=== PATIENT | male | born 1960 | race Caucasian/White ===

== ENCOUNTER → 2018-03-14 07:29 | Outpatient (CLI) | payer MEDICAID, SELFPAY ==
[2018-03-14 10:37] LABS: AST(SGOT) 14 U/L (15-37); Alanine Aminotransfer ALT/SGPT 25 U/L (16-61); Albumin, Serum 3.4 g/dL (3.2-5.0); Alkaline Phosphatase 48 U/L (45-117); Anion Gap 6 (5-15); BUN 22 mg/dL (7-18); BUN/Creat Ratio 26.4 RATIO (10-20); Calcium,Total 8.2 mg/dL (8.5-10.1); Chloride 106 mmol/L (98-107); Cholesterol 168 mg/dL (200); Creatinine, Serum 0.83 mg/dL (0.70-1.30); EST Glomerular Filtration Rate 101 mL/min (>60); Est Glom Filt Rate - Afr Amer 122 mL/min (>60); Globulin 3.5 g/dL (2.2-4.2); Glucose 97 mg/dL (74-106); High Density Lipoprotein 46 mg/dL; Potassium 4.1 mmol/L (3.5-5.1); Protein, Total 6.9 g/dL (6.4-8.2); Sodium Level 139 mmol/L (136-145); Triglycerides 52 mg/dL; Very Low Density Lipoprotein 10 mg/dL (5-40)
== END ==
PROVIDERS: Family Provider Family Medicine; PCP Family Medicine; Referring Provider Family Medicine; Visit Provider Family Medicine
DX: I10 Essential (primary) hypertension (principal)
CPT/HCPCS: 36415; 80053; 80061

== ENCOUNTER → 2018-06-28 17:46 | Outpatient (CLI) | payer MEDICAID, SELFPAY ==
[2018-06-28 19:53] LABS: Chlamydia Trachomatis by PCR Negative (Negative); Probe Check PASS
[2018-06-29 10:02] LABS: Neisserai gonorrhoeae by PCR Negative (Negative); Sample Adequacy Control PASS; Specimen Processing Control PASS
== END ==
PROVIDERS: Family Provider Family Medicine; PCP Family Medicine; Referring Provider Family Medicine; Visit Provider Family Medicine
DX: N45.1 Epididymitis (principal)
CPT/HCPCS: 87086; 87491; 87591

== ENCOUNTER → 2019-06-01 09:49 | Outpatient (CLI) | payer MEDICAID, SELFPAY ==
[2019-06-01 10:36] LABS: Hematocrit 46.6 % (40-54); Hemoglobin 15.6 g/dL (13.0-16.5); Mean Corp Hgb Conc 33.5 g/dL (32-36); Mean Corpuscular Hgb 28.9 pg (27.0-32.0); Mean Corpuscular Volume 86.3 fL (80-94); Mean Platelet Vol. 8.4 fl (6.2-12.0); Platelet Count 236 K/mm3 (150-450); RBC Distribution Width CV 12.8 % (11.6-14.6); RBC Distribution Width SD 39.9 fl (35.1-43.9); White Blood Count 7.8 K/mm3 (4.4-11.0)
[2019-06-01 11:08] LABS: ALB/GLOB Ratio 1.1 RATIO (0.9-2.4); AST(SGOT) 17 U/L (15-37); Alanine Aminotransfer ALT/SGPT 30 U/L (16-61); Albumin, Serum 3.7 g/dL (3.2-5.0); Alkaline Phosphatase 53 U/L (45-117); Anion Gap 5 (5-15); BUN 20 mg/dL (7-18); BUN/Creat Ratio 23.6 RATIO (10-20); Calcium,Total 8.5 mg/dL (8.5-10.1); Chloride 107 mmol/L (98-107); Creatinine, Serum 0.85 mg/dL (0.70-1.30); EST Glomerular Filtration Rate 98 mL/min (>60); Est Glom Filt Rate - Afr Amer 119 mL/min (>60); Globulin 3.5 g/dL (2.2-4.2); Glucose 103 mg/dL (74-106); PSA,Total - Annual Screen 2.34 ng/mL (0.00-4.00); Potassium 4.2 mmol/L (3.5-5.1); Protein, Total 7.2 g/dL (6.4-8.2); Sodium Level 141 mmol/L (136-145); Thyroid Stim Hormone (TSH) 1.26 uIU/mL (0.358-3.74)
[2019-06-03 09:04] LABS: Vitamin D,25 Hydroxy 17.8 ng/mL (29.95-100.01)
== END ==
PROVIDERS: Family Provider Family Medicine; PCP Family Medicine; Referring Provider Family Medicine; Visit Provider Family Medicine
DX: I10 Essential (primary) hypertension (principal); R53.83 Other fatigue; Z12.5 Encounter for screening for malignant neoplasm of prostate
CPT/HCPCS: 36415; 80053; 82306; 84153; 84403; 84443; 85027; G0103

== ENCOUNTER → 2020-07-28 15:14 | Outpatient (CLI) | payer MEDICAID, SELFPAY ==
[2020-07-28 18:00] LABS: Hemoglobin A1c 5.6 % (3.8-5.6)
[2020-07-28 18:19] LABS: ALB/GLOB Ratio 1.2 RATIO (0.9-2.4); AST(SGOT) 18 U/L (15-37); Alanine Aminotransfer ALT/SGPT 34 U/L (16-61); Alkaline Phosphatase 54 U/L (45-117); Anion Gap 6 (5-15); BUN 14 mg/dL (7-18); BUN/Creat Ratio 17.9 RATIO (10-20); Calcium,Total 8.7 mg/dL (8.5-10.1); Chloride 103 mmol/L (98-107); Cholesterol 179 mg/dL (200); Creatinine, Serum 0.78 mg/dL (0.70-1.30); EST Glomerular Filtration Rate 107 mL/min (>60); Est Glom Filt Rate - Afr Amer 130 mL/min (>60); Globulin 3.4 g/dL (2.2-4.2); Glucose 87 mg/dL (74-106); High Density Lipoprotein 55 mg/dL; PSA,Total - Annual Screen 2.76 ng/mL (0.00-4.00); Potassium 4.1 mmol/L (3.5-5.1); Protein, Total 7.4 g/dL (6.4-8.2); Sodium Level 137 mmol/L (136-145); Thyroid Stim Hormone (TSH) 1.15 uIU/mL (0.358-3.74); Triglycerides 71 mg/dL; Very Low Density Lipoprotein 14 mg/dL (5-40)
== END ==
PROVIDERS: PCP Family Medicine; Referring Provider Family Medicine; Visit Provider Family Medicine
DX: I10 Essential (primary) hypertension (principal); E66.9 Obesity, unspecified; Z12.5 Encounter for screening for malignant neoplasm of prostate
CPT/HCPCS: 36415; 80053; 80061; 83036; 84153; 84443; G0103

== ENCOUNTER → 2020-09-07 13:53 | Outpatient (CLI) | payer BC, MEDICAID, SELFPAY | PROVIDERS: PCP Family Medicine; Visit Provider Family Medicine | DX: Z20.822 Contact with and (suspected) exposure to COVID-19 (principal) | CPT/HCPCS: 87635; U0002 ==

== ENCOUNTER → 2021-05-07 09:05 | Outpatient (CLI) | payer BC, MEDICAID, SELFPAY | LOC: MFPLAB 09:09 → LABSPEC 09:10 | PROVIDERS: PCP Family Medicine; Referring Provider Family Medicine; Visit Provider Family Medicine | DX: Z20.822 Contact with and (suspected) exposure to COVID-19 (principal) | CPT/HCPCS: 87635; U0005; U0003 ==

== ENCOUNTER → 2021-06-01 16:58 | Outpatient (CLI) | payer BC, MEDICAID, SELFPAY | PROVIDERS: PCP Family Medicine; Visit Provider Family Medicine | DX: Z20.822 Contact with and (suspected) exposure to COVID-19 (principal) | CPT/HCPCS: 87635; U0005; U0003 ==

== ENCOUNTER 2021-06-07 16:00 | Outpatient (CLI) | payer BC, MEDICAID, SELFPAY | END 2021-06-07 23:59 | disposition short-term general hospital (02) | LOC: LABSPEC 06-10 13:48 | PROVIDERS: Visit Provider Family Medicine | DX: U07.1 COVID-19 (principal) | CPT/HCPCS: 87635; U0003; U0005 ==

== ENCOUNTER 2021-08-16 16:54 | Outpatient (CLI) | payer BC, MEDICAID, SELFPAY ==
[2021-08-17 08:41] LABS: ALB/GLOB Ratio 1.3 RATIO (0.9-2.4); AST(SGOT) 21 U/L (15-37); Alanine Aminotransfer ALT/SGPT 25 U/L (16-61); Albumin, Serum 3.8 g/dL (3.2-5.0); Alkaline Phosphatase 53 U/L (45-117); Anion Gap 3 (5-15); BUN 14 mg/dL (7-18); BUN/Creat Ratio 17.3 RATIO (10-20); Calcium,Total 8.5 mg/dL (8.5-10.1); Chloride 109 mmol/L (98-107); Cholesterol 197 mg/dL (200); Creatinine, Serum 0.81 mg/dL (0.70-1.30); EST Glomerular Filtration Rate 103 mL/min (>60); Est Glom Filt Rate - Afr Amer 124 mL/min (>60); Glucose 83 mg/dL (74-106); High Density Lipoprotein 60 mg/dL; PSA,Total - Annual Screen 2.22 ng/mL (0.00-4.00); Potassium 4.1 mmol/L (3.5-5.1); Protein, Total 6.8 g/dL (6.4-8.2); Sodium Level 139 mmol/L (136-145); Triglycerides 122 mg/dL; Very Low Density Lipoprotein 24 mg/dL (5-40)
== END 2021-08-16 23:59 | disposition home or self-care (01) ==
LOC: MFPLAB 16:55
PROVIDERS: Visit Provider Family Medicine
DX: N52.9 Male erectile dysfunction, unspecified (principal); I10 Essential (primary) hypertension
CPT/HCPCS: 36415; 80053; 80061; 84153; G0103

== ENCOUNTER → 2022-06-07 | Outpatient (CLI) | payer BC, SELFPAY ==
[2022-06-07 15:27] LABS: Hematocrit 46.6 % (40-54); Hemoglobin 15.6 g/dL (13.0-16.5); Mean Corp Hgb Conc 33.5 g/dL (32-36); Mean Corpuscular Hgb 28.7 pg (27.0-32.0); Mean Corpuscular Volume 85.7 fL (80-94); Mean Platelet Vol. 8.4 fl (6.2-12.0); Platelet Count 232 K/mm3 (150-450); RBC Distribution Width CV 13.2 % (11.6-14.6); RBC Distribution Width SD 40.6 fl (35.1-43.9); Red Blood Count 5.44 M/mm3 (4.6-6.2); White Blood Count 8.2 K/mm3 (4.4-11.0)
[2022-06-07 16:00] LABS: Anion Gap 4 (5-15); BUN 13 mg/dL (7-18); BUN/Creat Ratio 16.1 RATIO (10-20); Calcium,Total 9.2 mg/dL (8.5-10.1); Chloride 104 mmol/L (98-107); Creatinine, Serum 0.81 mg/dL (0.70-1.30); EST Glomerular Filtration Rate 103 mL/min (>60); Est Glom Filt Rate - Afr Amer 125 mL/min (>60); Glucose 100 mg/dL (74-106); Magnesium 2.3 mg/dL (1.6-2.6); Potassium 4.2 mmol/L (3.5-5.1); Sodium Level 137 mmol/L (136-145)
[2022-06-07 16:05] LABS: Thyroid Stim Hormone (TSH) 1.19 uIU/mL (0.358-3.74)
== END | disposition home or self-care (01) ==
PROVIDERS: PCP Family Medicine; Visit Provider Internal Medicine Cardiovascular Disease
DX: I47.1 Supraventricular tachycardia (principal)
CPT/HCPCS: 80048; 83735; 84443; 85027

== ENCOUNTER → 2022-12-27 | Outpatient (CLI) | payer BC, SELFPAY ==
--- NOTE | 2022-12-27 16:05 | RAD_ITS ---
EXAM: XR LUMBOSACRAL SPINE, 4 OR 5 VIEWS CLINICAL INDICATION: BACK PAIN TECHNIQUE: Frontal, lateral and bilateral oblique views of the lumbar spine. COMPARISON: No relevant prior studies available. FINDINGS: VERTEBRAE: Minimal thoracolumbar dextroscoliosis is present. Extensive lumbar facet arthritis is present with slight anterolisthesis of L4 on L5. No acute compression fracture. Oblique views show no pars defect. SACRUM/COCCYX: The visualized SI joints are unremarkable. DISC SPACES: Lower thoracic and lumbar disc spaces show degenerative narrowing, most severe at the L5/S1 level where there is associated endplate sclerosis and marginal osteophytes. Flowing osteophytes noted about the lower thoracic to upper lumbar disc spaces, with mild degenerative spurring about the mid lumbar disc spaces. GASTROINTESTINAL TRACT: Unremarkable as visualized. Included bowel gas pattern is non-obstructive. OTHER: The visualized lower ribs are intact. No renal calculi are seen. RAD/L/S Spine Min 4 Views IMPRESSION: 1. Degenerative narrowing of the lower thoracic and lumbar disc spaces, most severe at L5/S1, with marginal osteophytes about the lower thoracic and lumbar disc spaces. Lumbar facet arthritis with slight anterolisthesis of L4 on L5. 2. No acute fracture. Electronically Signed: David Sifuentes MD at 22:05 EDT ,
== END | disposition home or self-care (01) ==
PROVIDERS: PCP Family Medicine; Referring Provider Family Medicine; Visit Provider Family Medicine
DX: M54.30 Sciatica, unspecified side (principal)
CPT/HCPCS: 72110